=== PATIENT | female | born 2000 | race Caucasian/White ===

== ENCOUNTER 2019-06-03 12:43 | Emergency (ER) | payer BC ==
--- OUTSIDE RECORDS SUMMARY | 2019-06-03 13:26 | XMS REPORT | Continuity of Care Document ---
:2000 External Reference #:[id number] Author Name Ester Chopra DO (transmitted by agent of provider Nicole Lind) Address [address] [place] [address] Care Team Providers Name Role Phone Janna Hernández M.D. 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 Description No Information Available Social History Type Date Description Comments Sex Unknown Tobacco Use Start: Unknown Never Smoked Cigarettes ETOH Use Denies alcohol use Tobacco Use Start: Unknown End: Patient is a former Unknown smoker Smoking Status Reviewed: 05/18/19 Patient is a former smoker Exercise Exercises regularly 3-5 days per week Type/Frequency Allergies, Adverse Reactions, Alerts Description No Known Drug Allergies Medications Active Medications SIG Qnty Indications Ordering Provider Date Alprazolam take 0.5-1 tab 45tabs F41.0 Ester Chopra, 05/18/2019 1mg twice a day as DO Tablets needed for panic Emla apply topically to 30gm Theresa Pinedo, N.P. 11/03/2018 2.5-2.5% Cream affected area daily as needed Medical Cannibas as Needed Unknown Zofran take 1 tab every 6 Unknown 4mg Tablets hours as needed for vomiting. Sprintec Unknown History Medications Norgestimate-Eth Take one tab 28tabs Theresa Pinedo, 05/04/2019 - Estradiol daily N.P. 05/04/2019 0.25-35mg-mcg Tablets Norgestimate-Eth take two tabs by 84tabs Theresa Pinedo, 05/04/2019 - Estradiol mouth daily x 7 N.P. 05/17/2019 0.25-35mg-mcg Tablets days for heavy uterine bleeding Immunizations Description No Information Available Vital Signs Date Vital Result Comment 05/18/2019 3:48pm Height 61.75 inches 5'1.75" Weight 108.38 lb Heart Rate 77 /min BP Systolic 120 mmHg BP Diastolic 76 mmHg Body Temperature 99.5 F O2 % BldC Oximetry 96 % BMI (Body Mass Index) 20.0 kg/m2 11/07/2018 11:07am Height 61.75 inches 5'1.75" Weight 102.00 lb Heart Rate 81 /min BP Systolic 116 mmHg BP Diastolic 74 mmHg O2 % BldC Oximetry 97 % BMI (Body Mass Index) 18.8 kg/m2 Results Description No Information Available Procedures Description No Information Available Medical Devices Description No Information Available Encounters Description No Information Available Assessments Date Code Description Provider 05/18/2019 F41.0 Panic disorder [episodic paroxysmal anxiety] Ester Chopra DO Plan of Treatment Future Appointment(s):07/28/2019 3:00 pm - Ester Chopra DO at [facility] Internal Medicine - [address] - Ester Chopra DOF41.0 Panic disorder [episodic paroxysmal anxiety]New Medication:Alprazolam 1 mg - take 0.5-1 tab twice a day as needed for panicFollow up:2 months Functional Status Description No Information Available Mental Status Description No Information Available Referrals Description No Information Available
[2019-06-03 13:47] LABS: ABS Lymphocytes 2.4 10^3/ul (1.0-4.8); ABS Monocytes 0.3 10^3/ul (0-0.8); ABS Neutrophils 5.7 10^3/ul (1.5-7.7); Eosinophil % 0.3 %; Hematocrit 42 % (35-47); Hemoglobin 14.6 g/dL (12.0-16.0); Lymphocyte % 28.4 %; Mean Corpuscular HGB Conc 35 g/dL (31-36); Mean Corpuscular Hemoglobin 30 pg (27-31); Mean Corpuscular Volume 87 fL (80-97); Mean Platelet Volume 8.7 fL (7.4-10.4); Platelet Count 279 10^3/uL (150-450); Red Blood Count 4.85 10^6 /uL (3.70-4.87); Red Cell Distribution Width 13 % (10-15); White Blood Count 8.5 10^3/uL (3.5-10.8)
[2019-06-03 13:58] LABS: Urine Appearance Clear; Urine Bacteria 1+ (Absent); Urine Bilirubin Negative (Negative); Urine Blood 1+ (Negative); Urine Color Straw; Urine Glucose Negative (Negative); Urine Ketones Negative (Negative); Urine Nitrite Negative (Negative); Urine Protein Negative (Negative); Urine Red Blood Cell Trace(0-2/hpf) (Absent); Urine Specific Gravity 1.008 (1.010-1.030); Urine Squamous Epithelial Cell Present (Absent); Urine Urobilinogen Negative (Negative); Urine White Blood Cell Trace(0-5/hpf) (Absent)
[2019-06-03 14:01] LABS: ALT 22 U/L (7-52); AST 30 U/L (13-39); Albumin 4.6 g/dL (3.2-5.2); Albumin/Globulin Ratio 1.4 (1-3); Alkaline Phosphatase 52 U/L (34-104); Anion Gap 10 mmol/L (2-11); BUN/Creatinine Ratio 12.1 (8-20); Blood Urea Nitrogen 7 mg/dL (6-24); CO2 Carbon Dioxide 22 mmol/L (22-32); Calcium 9.9 mg/dL (8.6-10.3); Chloride 105 mmol/L (101-111); EGFR African American 158.8 (>60); EGFR Non-African American 131.2 (>60); Globulin 3.2 g/dL (2-4); Glucose 76 mg/dL (70-100); Potassium 3.9 mmol/L (3.5-5.0); Sodium 137 mmol/L (135-145); Total Protein 7.8 g/dL (6.4-8.9)
[2019-06-03 14:02] LABS: Urine Benzodiazepine Screen None Detected (None Detect); Urine Opiates Screen None Detected (None Detect)
[2019-06-03 14:07] LABS: HCG Pregnancy < 0.60 mIU/mL
--- NOTE | 2019-06-03 14:08 | ED ---
Psychiatric Complaint - HPI Summary HPI Summary: Pt is a 19 y/o F presenting to the ED brought in on a 9.41. Per pts mother, the pt has a hx of PTSD and anxiety that she uses medical marijuana and Xanax for. While speaking to her school counselor, she expressed passive SI. She currently denies active SI, or any physical symptoms such as fever. - History Of Current Complaint Chief Complaint: EDSuicidal Time Seen by Provider: 06/03/19 13:08 Accompanied By: mom Hx Obtained From: Patient, Family/Member Of Technical Staff - mom Onset/Duration: Gradual Onset, Lasting Days, Still Present Timing: Days Severity Initially: Moderate Severity Currently: Moderate Character: Depressed Aggravating Factor(s): Recent Stress Alleviating Factor(s): Nothing Associated Signs And Symptoms: Positive: Negative Related History: Positive For: Prior Psychiatric Issues Has Suicidal: Reports: Thoughts PMH/Surg Hx/FS Hx/Imm Hx Previously Healthy: Yes Endocrine/Hematology History: Denies: Hx Diabetes Cardiovascular History: Denies: Hx Hypertension Infectious Disease History: No Infectious Disease History: Reports: Traveled Outside the [place] in Last 30 Days - Family History Known Family History: Negative: Diabetes - Social History Lives: With Family Alcohol Use: None Hx Substance Use: Yes Substance Use Type: Reports: Marijuana - medical, Prescribed Hx Tobacco Use: No Smoking Status (MU): Never Smoked Tobacco Review of Systems Negative: Fever Positive: Depressed All Other Systems Reviewed And Are Negative: Yes Physical Exam - Summary Physical Exam Summary: Constitutional: Well-developed, Well-nourished, Alert. (-) Distressed Skin: Warm, Dry HENT: Normocephalic; Atraumatic Eyes: Conjunctiva normal Neck: Musculoskeletal ROM normal neck. Cardio: Rhythm regular, rate normal, Heart sounds normal; Intact distal pulses; Radial pulses are 2+ and symmetric. (-) Murmur Pulmonary/Chest wall: Effort normal. (-) Respiratory distress, (-) Wheezes, (-) Rales Abd: Soft, (-) tenderness, (-) Distension, (-) Guarding, (-) Rebound Musculoskeletal: (-) Edema Neuro: Alert, Oriented x3 Psych: tearful Triage Information Reviewed: Yes Vital Signs On Initial Exam: Initial Vitals Temp Pulse Resp BP Pulse Ox 99.7 F 99 16 138/91 97 06/03/19 12:55 06/03/19 12:55 06/03/19 12:55 06/03/19 12:55 06/03/19 12:55 Vital Signs Reviewed: Yes Procedures - Sedation Patient Received Moderate/Deep Sedation with Procedure: No Diagnostics - Vital Signs Vital Signs Temp Pulse Resp BP Pulse Ox 06/03/19 12:55 99.7 F 99 16 138/91 97 - Laboratory Lab Results: Lab Results 06/03/19 06/03/19 06/03/19 Range/Units 13:00 13:00 13:32 WBC 8.5 (3.5-10.8) 10^3/uL RBC 4.85 (3.70-4.87) 10^6 /uL Hgb 14.6 (12.0-16.0) g/dL Hct 42 (35-47) % MCV 87 (80-97) fL MCH 30 (27-31) pg MCHC 35 (31-36) g/dL RDW 13 (10-15) % Plt Count 279 (150-450) 10^3/uL MPV 8.7 (7.4-10.4) fL Neut % (Auto) 66.8 % Lymph % (Auto) 28.4 % [place] % (Auto) 3.9 % Eos % (Auto) 0.3 % Baso % (Auto) 0.6 % Absolute Neuts (auto) 5.7 (1.5-7.7) 10^3/ul Absolute Lymphs (auto) 2.4 (1.0-4.8) 10^3/ul Absolute Monos (auto) 0.3 (0-0.8) 10^3/ul Absolute Eos (auto) 0.0 (0-0.6) 10^3/ul Absolute Basos (auto) 0.0 (0-0.2) 10^3/ul Absolute Nucleated RBC 0.0 10^3/ul Nucleated RBC % 0.0 Sodium (135-145) mmol/L Potassium (3.5-5.0) mmol/L Chloride (101-111) mmol/L Carbon Dioxide (22-32) mmol/L Anion Gap (2-11) mmol/L BUN (6-24) mg/dL Creatinine (0.51-0.95) mg/dL Est GFR ( Amer) (>60) Est GFR (Non-Af Amer) (>60) BUN/Creatinine Ratio (8-20) Glucose (70-100) mg/dL Calcium (8.6-10.3) mg/dL Total Bilirubin (0.2-1.0) mg/dL AST (13-39) U/L ALT (7-52) U/L Alkaline Phosphatase (34-104) U/L Total Protein (6.4-8.9) g/dL Albumin (3.2-5.2) g/dL Globulin (2-4) g/dL Albumin/Globulin Ratio (1-3) TSH Beta HCG, Quant Urine Color Straw Urine Appearance Clear Urine pH 6.0 (5-9) Ur Specific [place] 1.008 L (1.010-1.030) Urine Protein Negative (Negative) Urine Ketones Negative (Negative) Urine Blood 1+ A (Negative) Urine Nitrate Negative (Negative) Urine Bilirubin Negative (Negative) Urine Urobilinogen Negative (Negative) Ur Leukocyte Esterase Negative (Negative) Urine WBC (Auto) Trace(0-5/hpf) (Absent) Urine RBC (Auto) Trace(0-2/hpf) (Absent) Ur Squamous Epith Cells Present A (Absent) Urine Bacteria 1+ A (Absent) Urine Glucose Negative (Negative) Salicylates Urine Opiates Screen None detected (None Detect) Acetaminophen Ur Barbiturates Screen None detected (None Detect) Ur Phencyclidine Scrn None detected (None Detect) Ur Amphetamines Screen None detected (None Detect) U Benzodiazepines Scrn None detected (None Detect) Urine Cocaine Screen None detected (None Detect) U Cannabinoids Screen Presumptive positive A (None Detect) Serum Alcohol 06/03/19 Range/Units 13:32 WBC (3.5-10.8) 10^3/uL RBC (3.70-4.87) 10^6 /uL Hgb (12.0-16.0) g/dL Hct (35-47) % MCV (80-97) fL MCH (27-31) pg MCHC (31-36) g/dL RDW (10-15) % Plt Count (150-450) 10^3/uL MPV (7.4-10.4) fL Neut % (Auto) % Lymph % (Auto) % [place] % (Auto) % Eos % (Auto) % Baso % (Auto) % Absolute Neuts (auto) (1.5-7.7) 10^3/ul Absolute Lymphs (auto) (1.0-4.8) 10^3/ul Absolute Monos (auto) (0-0.8) 10^3/ul Absolute Eos (auto) (0-0.6) 10^3/ul Absolute Basos (auto) (0-0.2) 10^3/ul Absolute Nucleated RBC 10^3/ul Nucleated RBC % Sodium 137 (135-145) mmol/L Potassium 3.9 (3.5-5.0) mmol/L Chloride 105 (101-111) mmol/L Carbon Dioxide 22 (22-32) mmol/L Anion Gap 10 (2-11) mmol/L BUN 7 (6-24) mg/dL Creatinine 0.58 (0.51-0.95) mg/dL Est GFR ( Amer) 158.8 (>60) Est GFR (Non-Af Amer) 131.2 (>60) BUN/Creatinine Ratio 12.1 (8-20) Glucose 76 (70-100) mg/dL Calcium 9.9 (8.6-10.3) mg/dL Total Bilirubin 0.20 (0.2-1.0) mg/dL AST 30 (13-39) U/L ALT 22 (7-52) U/L Alkaline Phosphatase 52 (34-104) U/L Total Protein 7.8 (6.4-8.9) g/dL Albumin 4.6 (3.2-5.2) g/dL Globulin 3.2 (2-4) g/dL Albumin/Globulin Ratio 1.4 (1-3) TSH Pending Beta HCG, Quant Pending Urine Color Urine Appearance Urine pH (5-9) Ur Specific [place] (1.010-1.030) Urine Protein (Negative) Urine Ketones (Negative) Urine Blood (Negative) Urine Nitrate (Negative) Urine Bilirubin (Negative) Urine Urobilinogen (Negative) Ur Leukocyte Esterase (Negative) Urine WBC (Auto) (Absent) Urine RBC (Auto) (Absent) Ur Squamous Epith Cells (Absent) Urine Bacteria (Absent) Urine Glucose (Negative) Salicylates Pending Urine Opiates Screen (None Detect) Acetaminophen Pending Ur Barbiturates Screen (None Detect) Ur Phencyclidine Scrn (None Detect) Ur Amphetamines Screen (None Detect) U Benzodiazepines Scrn (None Detect) Urine Cocaine Screen (None Detect) U Cannabinoids Screen (None Detect) Serum Alcohol Pending Result Diagrams: 06/03/19 13:32 06/03/19 13:32 Lab Statement: Any lab studies that have been ordered have been reviewed, and results considered in the medical decision making process. Re-Evaluation - Re-Evaluation 1st re-eval Re-Evaluation Time: 16:20 Change: Improved Comment: Per Dr. Logan, the pt can be d/c'ed with dx of PTSD. Course/Dx - Course Course Of Treatment: 19-year-old female with a history of anxiety and PTSD presents with passive suicidal ideation. Medically cleared, will have mental health team evaluate. - Differential Dx/Clinical Impression Provider Diagnosis: PTSD (post-traumatic stress disorder) Discharge ED - Sign-Out/Discharge Documenting (check all that apply): Patient Departure - Discharge Plan Condition: Stable Disposition: HOME Prescriptions: Prazosin CAP* [Minipress CAP*] 2 mg PO BEDTIME #30 cap Patient Education Materials: Post Traumatic Stress Disorder (ED), Suicide Prevention (ED) Referrals: [facility]Outside] [facility] [Outside] Ester Chopra DO [Primary Care Provider] - - Billing Disposition and Condition Condition: STABLE Disposition: Home - Attestation Statements Document Initiated by Jessyibbrny: Yes Documenting Scribe: Stacey Rajan Provider For Whom Will is Documenting (Include Credential): Colleen Godfrey MD. Scribe Attestation: IStacey, scribed for Colleen Godfrey MD. on 06/03/19 at 1641. Scribe Documentation Reviewed: Yes Provider Attestation: The documentation as recorded by the scribe, Stacey Rajan accurately reflects the service I personally performed and the decisions made by , Colleen Godfrey MD. Status of Scribe Document: Viewed
[2019-06-03 14:10] LABS: Acetaminophen < 15 mcg/mL; Alcohol 50 mg/dL (<10); Salicylate < 2.50 mg/dL (<30)
[2019-06-03 14:24] LABS: TSH (Thyroid Stimulating Horm) 0.96 mcIU/mL (0.34-5.60)
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
[2019-06-03 16:49] VITALS: BP 136/90
== END 2019-06-03 16:47 | disposition home or self-care (01) ==
LOC: ED 12:43
DX: F43.10 Post-traumatic stress disorder, unspecified (principal); F41.9 Anxiety disorder, unspecified; Z79.899 Other long term (current) drug therapy
CPT/HCPCS: 36415; 80053; 80307; 80320; 80329; 81003; 81015; 84443; 84702; 85025; 87086; 99285; G0480